=== PATIENT | male | born 1980 | race Caucasian/White ===

== ENCOUNTER 2018-10-13 10:43 | Emergency (ER) | payer MEDICAID, OTHER ==
[~2018-10-13] VITALS: Ht 172.7 cm; Wt 89.8 kg
--- NOTE | 2018-10-13 10:55 | NUR ---
BIB SELF [facility] C/O DIFFICULTY BREATHING THIS MORNING, CHEST TIGHTNESS AND DIZZINESS, CONGESTION AND BLOATED FEELING x 4 DAYS, TOOK 1MG OF ATIVAN PO AT 9AM. TO ER BED 9, HOOKED TO MONITOR, PROVIDED W WARM BLANKET, AWAITING MD LUCAS.
--- NOTE | 2018-10-13 11:13 | NUR ---
DR RADER AT BEDSIDE
[2018-10-13] MEDS ORDERED: MAG HYDROX/AL HYDROX/SIMETH 30 ML UDC ONE (11:17)
[2018-10-13] MEDS ORDERED: LIDOCAINE VISCOUS 2% UD 15 ML UDC ONE (11:17)
[2018-10-13 11:27] LABS: BASOPHILS # (AUTO) 0.1 /CMM (0.0-0.2); EOSINOPHILS % (AUTO) 1.4 % (0.0-6.0); HEMATOCRIT 44 % (39-51); HEMOGLOBIN 15.2 g/dL (13.5-17.5); LYMPHOCYTES # (AUTO) 1.3 /CMM (0.8-4.8); LYMPHOCYTES % (AUTO) 25.2 % (20.0-44.0); MEAN CORPUSCULAR HGB CONC 35 g/dl (31.0-36.0); MEAN CORPUSCULAR VOLUME 88 fL (80-96); MONOCYTES # (AUTO) 0.2 /CMM (0.1-1.30); MONOCYTES % (AUTO) 4.3 % (2.0-12.0); NEUTROPHILS # (AUTO) 3.6 /CMM (1.8-8.9); NEUTROPHILS % (AUTO) 68.1 % (43.0-81.0); PLATELET COUNT (AUTO) 228 /CMM (150-450); RED BLOOD CELL COUNT(AUTO) 4.99 MIL/uL (4.5-6.0); WHITE BLOOD COUNT (AUTO) 5.3 K/uL (4.3-11.0)
[2018-10-13] MEDS ORDERED: MAG HYDROX/AL HYDROX/SIMETH 30 ML UDC PO ONE (11:30)
[2018-10-13] MEDS ORDERED: LIDOCAINE VISCOUS 2% UD 15 ML UDC MM ONE (11:30)
[2018-10-13 11:43] LABS: CALCIUM, SERUM 8.7 mg/dL (8.5-10.1); CARBON DIOXIDE 29 mmol/L (21-32); CHLORIDE 105 mmol/L (98-107); CREATININE 1.1 mg/dL (0.6-1.3); GLUCOSE 96 mg/dL (74-106); POTASSIUM 3.5 mmol/L (3.5-5.1); SODIUM SERUM 142 mmol/L (136-145); UREA NITROGEN, BLOOD 11 mg/dL (7-18)
[2018-10-13 11:47] LABS: ALANINE AMINOTRANSFERASE 26 U/L (12-78); ALBUMIN 4.5 g/dL (3.4-5.0); ALKALINE PHOSPHATASE 66 U/L (46-116); ASPARTATE AMINOTRANSFERASE 17 U/L (15-37); BILIRUBIN,DIRECT 0.3 mg/dL (0.0-0.2); LIPASE 129 U/L (73-393); TOTAL PROTEIN, SERUM 8.1 g/dL (6.4-8.2)
[2018-10-13] MEDS ORDERED: SUCRALFATE 1 G/10 ML UDC PO ONE (12:00)
[2018-10-13] MEDS ORDERED: SUCRALFATE 1 G/10 ML UDC ONE (12:06)
--- NOTE | 2018-10-13 12:16 | NUR ---
PT IN BED, AWAKE, NAD NOTED. HOOKED TO MONITOR. KEPT WARM, SAFE AND COMFORTABLE. WILL CONTINUE TO MONITOR ACCORDINGLY.
--- NOTE | 2018-10-13 13:19 | NUR ---
US TECH AT BEDSIDE
--- NOTE | 2018-10-13 14:55 | NUR ---
Patient discharged to home in stable condition. Written and verbal after care instructions given. Patient verbalizes understanding of instruction.
[2018-10-13 14:57] VITALS: BP 131/92
== END 2018-10-13 14:57 | disposition home or self-care (01) ==
LOC: ER 10:48
DX: K21.9 Gastro-esophageal reflux disease without esophagitis (principal); F41.9 Anxiety disorder, unspecified; Z88.1 Allergy status to other antibiotic agents
CPT/HCPCS: 36415; 71045-TC; 76700-TC; 80048-TC; 80076-TC; 83690-TC; 84484-TC; 85025-TC